=== PATIENT | female | born 1975 | race Caucasian/White ===

== ENCOUNTER 2018-05-07 04:06 | Emergency (ER) | payer BC ==
[~2018-05-07] VITALS: Ht 154.9 cm; Wt 74.8 kg
[2018-05-07] MEDS ORDERED: ONDANSETRON HCL 4 MG ORAL DISINTEGRATING TAB PO ONE (04:30)
== END 2018-05-07 05:49 | disposition home or self-care (01) ==
LOC: FSED 04:06
DX: R11.2 Nausea with vomiting, unspecified (principal); R10.84 Generalized abdominal pain; R19.7 Diarrhea, unspecified
CPT/HCPCS: 81003; 99283